=== PATIENT | male | born 1945 | race Hispanic/Latino ===

== ENCOUNTER 2021-06-27 12:32 | Outpatient (CLI) | payer MEDICARE | END 2021-06-27 12:33 | disposition home or self-care (01) | LOC: CSHCT 12:32 | PROVIDERS: ATTEND Internal Medicine Gastroenterology | DX: J98.59 Other diseases of mediastinum, not elsewhere classified (principal); K76.0 Fatty (change of) liver, not elsewhere classified | CPT/HCPCS: 71260; 82565 ==

== ENCOUNTER 2021-12-30 13:16 | Outpatient (CLI) | payer OTHER | END 2021-12-30 13:17 | disposition home or self-care (01) | LOC: CSHMRI 13:16 | PROVIDERS: ATTEND Nurse Practitioner Family | DX: M54.16 Radiculopathy, lumbar region (principal); M47.816 Spondylosis without myelopathy or radiculopathy, lumbar region; M48.061 Spinal stenosis, lumbar region without neurogenic claudication | CPT/HCPCS: 72148 ==

== ENCOUNTER 2022-02-07 08:49 | Outpatient (CLI) | payer MEDICARE ==
[2022-02-07 10:33] LABS: Hemoglobin 13.5 g/dL (13.5-17.5); Mean Corpuscular HGB CONC 33.9 g/dL (32.0-36.0); Mean Corpuscular Hemoglobin 32.5 pg (27.0-33.0); Mean Corpuscular Volume 95.7 fl (81.2-95.1); Mean Platelet Volume 9.4 fl (7.4-10.4); Platelet Count 274 10x3/uL (150-450); RBC Distribution Width 13.3 % (11.5-14.5); Red Blood Cell (RBC) Count 4.16 10x6/uL (4.32-5.72); White Blood Cell (WBC) Count 9.3 10x3/uL (3.5-10.5)
[2022-02-07 10:41] LABS: Anion Gap 16 mmol/L (10-20); BUN (Urea Nitrogen) 13 mg/dL (8.4-25.7); Calc. Creatinine Clearance 0 mL/min (70-130); Calcium 9.4 mg/dL (7.8-10.44); Carbon Dioxide 24 mmol/L (23-31); Chloride 104 mmol/L (98-107); Estimated GFR 87; Glucose 119 mg/dL (83-110); Potassium 4.5 mmol/L (3.5-5.1); Sodium 139 mmol/L (136-145)
[2022-02-07 10:49] LABS: INR-International Normal Ratio 0.9; PTT 29.2 sec (22.0-33.0); Prothrombin Time 10.3 sec (9.5-12.1)
== END 2022-02-07 08:50 | disposition home or self-care (01) ==
LOC: CSHLAB 08:49
PROVIDERS: ATTEND Specialist
DX: Z01.818 Encounter for other preprocedural examination (principal); Z20.822 Contact with and (suspected) exposure to COVID-19
CPT/HCPCS: 80048; 85027; 85610; 85730; 87811; 93005; 93010

== ENCOUNTER 2022-02-24 13:04 | Outpatient (CLI) | payer OTHER | END 2022-02-24 13:05 | disposition home or self-care (01) | LOC: CSHLAB 13:04 | PROVIDERS: ATTEND Specialist | DX: Z20.822 Contact with and (suspected) exposure to COVID-19 (principal) | CPT/HCPCS: 87811 ==

== ENCOUNTER 2022-02-28 11:51 | Inpatient (IN) | payer MEDICARE ==
[2022-02-28 09:23] VITALS: BP 174/76; TEMP 98.4
[~2022-02-28 11:51] MED LIST: Acetaminophen/Codeine 30-300mg Tablet PO PRN; Adenosine 6 MG/2 ML VIAL ONE; Aspirin 325 MG TAB ONE; Atropine Sulfate 0.4 mg/1 ml Vial ONE; Fentanyl 100 MCG/2 ML VIAL ONE; Heparin 10,000 UNITS/ 10 ML VIAL ONE; Lidocaine 1% 20 ML MDV ONE; Midazolam HCl 2 mg/2 ml Vial ONE; Morphine 2 MG/ML VIAL SLOW IVP PRN; Nitroglycerin 50 MG/250 ML BOT 0 ML ONE; PHENYLEPHRINE-NS 100 MCG/ML 10 ML SYRINGE ONE; Phenylephrine 40 MG/NS 250 ML 0 ML ONE
[2022-02-28] MEDS ORDERED: Sodium Chloride 0.9% 1,000 ML IV SCH (12:00)
[2022-02-28 12:32] VITALS: BMI 44.2
[2022-02-28] MEDS ORDERED: Iopamidol 300 61% 100 ML VIAL FS ONE (13:18)
[2022-02-28] MEDS: Tamsulosin HCl 0.4 MG CAP PO SCH (20:06)
[2022-02-28] MEDS ORDERED: Magnesium Oxide 250 MG TAB PO SCH (21:00)
[2022-03-01] MEDS: Acetaminophen/Codeine 30-300mg Tablet PO PRN ×2 (01:10→08:47)
[2022-03-01 04:44] LABS: #Basophils 0.1 10x3/uL (0.0-0.2); #Eosinphils 0.2 10x3/uL (0.0-0.5); #Neutrophils 8.8 10x3/uL (1.5-8.4); %Basophils 0.4 % (0.0-2.0); %Eosinophils 1.3 % (0.0-6.0); %Lymphocytes 18.1 % (18.0-47.0); %Neutrophils 71.7 % (40.0-75.0); Hemoglobin 12.7 g/dL (13.5-17.5); Mean Corpuscular HGB CONC 34.2 g/dL (32.0-36.0); Mean Corpuscular Hemoglobin 32.2 pg (27.0-33.0); Mean Corpuscular Volume 94.2 fl (81.2-95.1); Mean Platelet Volume 9.2 fl (7.4-10.4); Platelet Count 309 10x3/uL (150-450); Red Blood Cell (RBC) Count 3.94 10x6/uL (4.32-5.72); White Blood Cell (WBC) Count 12.3 10x3/uL (3.5-10.5)
[2022-03-01 05:01] LABS: ALT (SGPT) 24 U/L (8-55); AST (SGOT) 16 U/L (5-34); Albumin 3.6 g/dL (3.4-4.8); Alkaline Phosphatase 61 U/L (40-110); Anion Gap 14 mmol/L (10-20); BUN (Urea Nitrogen) 15 mg/dL (8.4-25.7); Bilirubin, Total 0.5 mg/dL (0.2-1.2); Calc. Creatinine Clearance 137 mL/min (70-130); Calcium 8.9 mg/dL (7.8-10.44); Carbon Dioxide 22 mmol/L (23-31); Chloride 106 mmol/L (98-107); Estimated GFR 91; Globulin 3.2 g/dL (2.4-3.5); Glucose 121 mg/dL (83-110); Protein, Total 6.8 g/dL (5.8-8.1); Sodium 138 mmol/L (136-145)
[2022-03-01] MEDS: Tamsulosin HCl 0.4 MG CAP PO SCH (08:16)
[2022-03-01] MEDS ORDERED: Ascorbic Acid 500 mg Chewable Tablet PO SCH (09:00)
[2022-03-01] MEDS ORDERED: Fish Oil 1,000 MG CAP PO SCH (09:00)
[2022-03-01] MEDS ORDERED: Atorvastatin Calcium 40 MG TAB PO SCH (09:00)
[2022-03-01] MEDS ORDERED: Aspirin 81 mg Enteric Coated Tablet PO SCH (09:00)
[2022-03-01] MEDS ORDERED: Losartan Potassium 50 MG TAB PO SCH (09:00)
[2022-03-01] MEDS ORDERED: Clopidogrel Bisulfate 75 MG TAB PO SCH (09:00)
== END 2022-03-01 12:15 | disposition home or self-care (01) | DRG 35 ==
LOC: CSHSDC 11:51 → CSHIMCU 11:52 → CSHICU 12:03
PROVIDERS: ADMIT Specialist; ATTEND Specialist
PROC: 037K34Z Dilation of Right Internal Carotid Artery with Drug-eluting Intraluminal Device, Percutaneous Approach (ICD-10-PCS; principal; 2022-02-28)
PROC: B3101ZZ Fluoroscopy of Thoracic Aorta using Low Osmolar Contrast (ICD-10-PCS; 2022-02-28)
PROC: B3151ZZ Fluoroscopy of Bilateral Common Carotid Arteries using Low Osmolar Contrast (ICD-10-PCS; 2022-02-28)
DX: I65.23 Occlusion and stenosis of bilateral carotid arteries (principal); Z68.41 Body mass index [BMI] 40.0-44.9, adult; I42.0 Dilated cardiomyopathy; I50.32 Chronic diastolic (congestive) heart failure; E66.01 Morbid (severe) obesity due to excess calories; I25.10 Atherosclerotic heart disease of native coronary artery without angina pectoris; N40.0 Benign prostatic hyperplasia without lower urinary tract symptoms; E78.00 Pure hypercholesterolemia, unspecified; E78.2 Mixed hyperlipidemia; I11.0 Hypertensive heart disease with heart failure; I73.9 Peripheral vascular disease, unspecified; Z20.822 Contact with and (suspected) exposure to COVID-19; I25.2 Old myocardial infarction; Z79.899 Other long term (current) drug therapy; Z79.02 Long term (current) use of antithrombotics/antiplatelets; Z79.82 Long term (current) use of aspirin; Z95.5 Presence of coronary angioplasty implant and graft; Z87.442 Personal history of urinary calculi; Z82.49 Family history of ischemic heart disease and other diseases of the circulatory system; Z87.891 Personal history of nicotine dependence
CPT/HCPCS: 36215; 36222; 36225; 36227; 37215; 75710; 80053; 85025; 85347; 93005; 93010; 99152; 99153; C1760; C1769; C1876; C1884; C1894; J0153; J0461; J1644; J2250; J3010; Q9967

== ENCOUNTER 2022-05-04 07:41 | Outpatient (CLI) | payer OTHER ==
[2022-05-04] MEDS ORDERED: Iopamidol 300 61% 100 ML VIAL FS ONE (12:32)
== END 2022-05-04 07:42 | disposition home or self-care (01) ==
LOC: CSHCT 07:41
PROVIDERS: ATTEND Urology
DX: R31.0 Gross hematuria (principal); K76.0 Fatty (change of) liver, not elsewhere classified
CPT/HCPCS: 74178; 82565; Q9967

== ENCOUNTER 2023-06-01 09:39 | Outpatient (CLI) | payer OTHER | END 2023-06-01 09:40 | disposition home or self-care (01) | LOC: CSHRAD 09:39 | PROVIDERS: ATTEND Family Medicine | DX: R05.9 Cough, unspecified (principal) | CPT/HCPCS: 71046 ==

== ENCOUNTER 2024-02-19 08:04 | Outpatient (CLI) | payer OTHER | END 2024-02-19 08:05 | disposition home or self-care (01) | LOC: CSHCT 08:04 | PROVIDERS: ATTEND Physician Assistant Medical | DX: Z85.038 Personal history of other malignant neoplasm of large intestine (principal); R10.30 Lower abdominal pain, unspecified; K59.00 Constipation, unspecified; N32.89 Other specified disorders of bladder; K76.0 Fatty (change of) liver, not elsewhere classified | CPT/HCPCS: 74177; 82565 ==

== ENCOUNTER 2024-06-19 23:05 | Emergency (ER) | payer OTHER ==
[2024-06-20] MEDS ORDERED: Nitroglycerin 2% Ointment 1 INCH/1 GM Packet ONE (00:28)
[2024-06-20] MEDS ORDERED: Aspirin Chewable 81 MG TAB ONE (00:29)
[2024-06-20 01:07] LABS: #Basophils 0.06 10x3/uL (0.0-0.2); #Eosinophils 0.21 10x3/uL (0.0-0.5); #Monocytes 0.89 10x3/uL (0.0-1.1); #Neutrophils 5.43 10x3/uL (1.5-8.4); %Basophils 0.6 % (0.0-2.0); %Eosinophils 2.2 % (0.0-6.0); %Lymphocytes 29.2 % (18.0-47.0); %Monocytes 9.5 % (0.0-10.0); %Neutrophils 57.8 % (40.0-75.0); Hematocrit 39.7 % (38.8-50.0); Hemoglobin 13.2 g/dL (13.5-17.5); Mean Corpuscular HGB CONC 33.2 g/dL (32.0-36.0); Mean Corpuscular Hemoglobin 32.3 pg (27.0-33.0); Mean Corpuscular Volume 97.1 fL (81.2-95.1); Mean Platelet Volume 8.8 fL (7.4-10.4); Platelet Count 287 10x3/uL (150-450); RBC Distribution Width 13.7 % (11.5-14.5); Red Blood Cell (RBC) Count 4.09 10x6/uL (4.32-5.72); White Blood Cell (WBC) Count 9.4 10x3/uL (3.5-10.5)
[2024-06-20 01:17] LABS: ALT (SGPT) 44 U/L (8-55); AST (SGOT) 24 U/L (5-34); Albumin 3.2 g/dL (3.4-4.8); Alkaline Phosphatase 63 U/L (40-110); Anion Gap 14 mmol/L (10-20); BUN (Urea Nitrogen) 16 mg/dL (8.4-25.7); Bilirubin, Total 0.2 mg/dL (0.2-1.2); Calc. Creatinine Clearance 0 mL/min (70-130); Calcium 8.8 mg/dL (7.8-10.44); Carbon Dioxide 23 mmol/L (23-31); Chloride 106 mmol/L (98-107); Estimated GFR 84; Globulin 3.5 g/dL (2.4-3.5); Glucose 117 mg/dL (83-110); Potassium 4.2 mmol/L (3.5-5.1); Protein, Total 6.7 g/dL (5.8-8.1); Sodium 139 mmol/L (136-145)
[2024-06-20 01:23] LABS: Troponin I Less than 0.010 ng/mL (< 0.028)
== END 2024-06-20 02:35 | disposition home or self-care (01) ==
LOC: CSHERS 23:05
DX: I10 Essential (primary) hypertension (principal); I25.10 Atherosclerotic heart disease of native coronary artery without angina pectoris; E78.5 Hyperlipidemia, unspecified; Z79.02 Long term (current) use of antithrombotics/antiplatelets; Z79.899 Other long term (current) drug therapy
CPT/HCPCS: 36415; 71045; 80053; 84484; 85025; 93005